=== PATIENT | female | born 1970 | race Caucasian/White ===

== ENCOUNTER 2021-06-10 08:13 | Outpatient (CLI) | payer BC, SELFPAY ==
--- NOTE | 2021-06-10 08:00 | ECG_ITS ---
Measurements Intervals Randall Rate: 61 P: 46 AL: 151 QRS: -31 QRSD: 102 T: 7 QT: 406 QTc: 410 Interpretive Statements SINUS RHYTHM LEFT AXIS DEVIATION POOR R WAVE PROGRESSION, ANTERIOR LEADS BORDERLINE T WAVE ABNORMALITY- INFERIOR LEADS BASELINE ARTIFACT- II, III, AVR, AVL, AVF BORDERLINE ECG Electronically Signed On 06-10-2021 8:36:38 REGISTERED NURSE MATERNAL CHILD by Shiva Thomas D.O.
== END 2021-06-10 08:14 | disposition home or self-care (01) ==
LOC: ANHSURGERY 08:22
PROVIDERS: Visit Provider Obstetrics & Gynecology
DX: Z01.818 Encounter for other preprocedural examination (principal); N92.0 Excessive and frequent menstruation with regular cycle; I10 Essential (primary) hypertension
CPT/HCPCS: 36415; 86850; 86900; 86901; 93005

== ENCOUNTER 2021-06-12 01:54 | Day surgery (SDC) | payer BC, SELFPAY ==
[2021-06-07 11:27] VITALS: BMI 35.2
--- NOTE | 2021-06-07 11:45 | PC.NURSE ---
Report to the Outpatient Waiting Room, entrance under the green pavilion located off [facility], at time 9:30 on date 06/12/21. OR Time: 11:30. - You and your visitor will be asked a series of questions to screen for COVID 19 for your protection. - A mask is required within the hospital. - Only one visitor is allowed at this time. Patient visitors will be guided where to wait when not with patient. Preoperative COVID Testing Requirements: EMAIL POSITIVE TEST RESULT TO: [email or web address] No COVID Test needed if: (proof is required; if not received patient will have Rapid Test prior to entry) - Patient has received COVID Vaccine at least 14 days prior to procedure date or - Patient has positive COVID test result within last 90 days of surgery date. COVID Test needed if above criteria is not met If not COVID vaccinated a COVID test must be conducted within 72 hours of surgery and patient is asked to isolate self from time of testing until procedure. You will go to the [facility] for your COVID testing. The [facility] site is located at the corner of [address] [facility]. You will only be called if COVID results are positive and your surgeon may reschedule your elective surgery date. Patients may have clear liquids (water, carbonated beverages, clear teas, apple juice) until 3 hours prior to surgery with a maximum of 20 ounces. - No food from midnight until time of surgery - Infants may have breast milk until 4 hours before surgery, infant formula 6 hours prior to surgery. - Children will be allowed to drink immediately following surgery. If applicable, please bring a bottle or sippy cup to assist with drinking. Juice, water, soda, and popsicles are readily available. For infants on formula, please bring formula the day of surgery. Pacifiers are allowed. Take the following medications with a SIP of water the morning of surgery: N/A Medications to discontinue per physician: N/A Date to take last dose: N/A Please no make-up, nail kinyarwanda, hairspray, perfume, deodorant, or body powder the day of surgery. No jewelry (including any body piercings) or valuables the day of surgery, leave them at home. Please take a shower or bath the night before, or the morning of, surgery with an antibacterial soap. Wear comfortable, loose fitting clothing. Children are encouraged to wear pajamas. - Jewelry must be removed prior to entering the operating room. Rings and piercings that are not removed may be cut off. - The hospital will not accept responsibility for valuables. - Please leave all valuables, including medications, at home the day of surgery. If you are going home after surgery, a licensed food mobile driver must drive you home. - NO public transportation without another adult. - We recommend that an adult stay with you for 24 hours following discharge. - We also recommend that you do not drive, make important decision, drink alcoholic beverages, or take any drugs that were not prescribed by your health care provider for at least 24 hours after your discharge time. For Pediatric surgeries, we recommend two adults accompany the child home (only one inside the building at this time). Follow any additional instructions given to you from your surgeon. Telephone instructions given to DREAD SMILEY and asked if any additional questions and then verbalized understanding. Patient advised to call surgeon office or pre surgery nurse liaison [phone] if any additional questions.
[2021-06-12] VITALS (11 sets, daily range): BP systolic 104–123; BP diastolic 62–74; PULSE 47–80; RESP 10–18; TEMP 36.6–37.1; O2SAT 92–100
--- NOTE | 2021-06-12 09:51 | WPDANESEPPF ---
Anes - Initial Pre Proc Eval Procedure: Operation Date: 06/12/21 11:30 Proposed Procedures p Total Laparoscopic Hysterectomy with Bilateral Salpingo-oophorectomy - Amy Medrano MD Date/Time: 06/12/21 09:51 Surgeon: Amy Medrano MD Pre Op Diagnosis: Menorrhagia, Myomas Patient Data Age: 50 Gender: F Height: 1.65 m Weight: 96.16 kg Allergies Allergy/AdvReac Type Severity Reaction Status Date / Time No Known Allergies Allergy Mild Unverified 06/07/21 11:25 Home Medications Medication Instructions Recorded Confirmed Type amlodipine 10 mg PO HS 06/07/21 06/07/21 History escitalopram oxalate 10 mg PO HS 06/07/21 06/07/21 History Patient hx anesthesia problems: none Family hx anesthesia problems: none Results Review: All pre-operative results and documents have been reviewed as part of the pre-operative evaluation. [facility] Past Medical History Medical History Anxiety Fibroid Hyperlipidemia Hypertension Social History Social History Smoking status: Never smoker Alcohol intake: current Alcohol use details: 2/MONTH Substance use: never Substance use type: does not use Living arrangements: with family Spiritual care concerns: No Anes - Eval Final PreProcedure Day of Procedure 06/12/21 09:51 Results Review: All pre-operative results and documents have been reviewed as part of the pre-operative evaluation. Informed Consent: The patient's anesthetic plan and its attendant risks and benefits were discussed with the patient/family/POA. Questions were solicited and answers provided to the satisfaction of the patient/family/POA.
--- NOTE | 2021-06-12 10:00 | WPDHPUPDATE1 ---
History and Physical Update Update Date/Time: 06/12/21 10:00 History and Physical has been reviewed, including an updated exam of the patient. There are NO changes in the patient's condition. Risks, benefits, and alternatives have been discussed and questions answered. Patient agrees to proceed with procedure.
[2021-06-12] MEDS: ACETAMINOPHEN 500 MG TABLET 1000 MG PO (10:09)
--- NOTE | 2021-06-12 10:11 | WPDANESEFPP ---
Anes - Eval Final PreProcedure Day of Procedure 06/12/21 10:11 Patient weight: obese Heart: regular rate and rhythm Lungs: clear to auscultation and normal air movement Airway: Mallampati scale class III Neurological: alert and oriented Last oral intake: >/= 8 hours ASA classification: III Emergent: no Anesthetic plan: proceed Anesthesia type and monitoring: general ETT and standard monitoring Results Review: All pre-operative results and documents have been reviewed as part of the pre-operative evaluation. Informed Consent: The patient's anesthetic plan and its attendant risks and benefits were discussed with the patient/family/POA. Questions were solicited and answers provided to the satisfaction of the patient/family/POA.
[2021-06-12] MEDS: LACTATED RINGERS 1,000 ML 30 ML IV CONT ×2 (10:18→12:22)
[2021-06-12] MEDS: KETOROLAC 15 MG/ML VIAL (*BKC) IV PUSH (10:18)
[2021-06-12] MEDS: ceFAZolin 2 GM/D5W 50 ML 2 GM/50 ML BAG IVPB (10:26)
--- NOTE | 2021-06-12 12:10 | W.PM.PROC2 ---
Procedure Note - Detailed Date of Procedure 06/12/21 Pre-op Diagnosis Menorrhagia, Myomas Post-op Diagnosis same Procedure Performed Total laparoscopic hysterectomy and bilateral salpingo-oophorectomy. Surgeon Amy Medrano MD Anesthesia general Indications Severe menometrorrhagia, Findings large myomatous uterus, normal appearing ovaries and normal-appearing tubes. Description of Procedure This patient was taken to the operating room. She was prepped and draped in the dorsal lithotomy position after induction of general anesthesia. The uterine manipulator and Dallin cup were placed. This was done with a speculum and tenaculum. The speculum was placed. The cervix was grasped with a tenaculum. The stay sutures were placed at 3 and 9:00 a.m.. The stay sutures of 0 Vicryl were brought through the appropriately sized Dallin cup. The tip of the YOANA manipulator was placed in the intrauterine cavity. The cup was slid into place around the cervix and into the fornices. It was locked into place. The sutures were then wrapped around the handle and tied under tension. A 5 mm skin incision was made in the left upper quadrant the abdomen. A 5 mm trocar was inserted into the intrauterine cavity under direct visualization of the scope. Pneumoperitoneum was achieved. A left lower quadrant 11 mm incision was made with scalpel. An 11 mm trocar was inserted into the anterior abdominal cavity under direct visualization the scope. A 5 mm infraumbilical incision was made with a scalpel and a 5 mm trocar was inserted the intra-abdominal cavity under direct visualization of the scope. Bilateral ureteral lysis was performed. This was done from the pelvic brim down to the uterine artery. This was done with careful dissection using sharp and blunt dissection. The infundibulopelvic ligaments were isolated after identification of the ureters bilaterally. These infundibulopelvic ligaments were cauterized and transected with LigaSure cautery. The para ovarian tissue was cauterized and transected with LigaSure cautery bilaterally. Moving around the ovary into the broad ligament the tissue was cauterized transected with LigaSure cautery. The round ligaments were cauterized transected with LigaSure cautery this was all done in a bilateral fashion. In a stepwise fashion along the lateral aspects of the uterus the round ligament and broad ligaments were cauterized transected down to the level of the uterine arteries. A bladder flap was created in the bladder was moved distally to the end of the cervix and over the Dallin cup. The bilateral uterine arteries were cauterized and transected. Colpotomy was then performed. In a circumferential fashion the vagina was transected using unipolar cautery. The incision was made down on the Dallin cup. The uterus, cervix, fallopian tubes and ovaries were taken out through the vagina. A pneumo occluder was placed in the vagina. The vaginal cuff was closed with a 0 V lock suture in a running fashion. The pelvis was irrigated with copious amounts antibiotic irrigation. The ureters were again examined and found to be intact and flowing freely under the uterine arteries into the bladder. The bladder was intact. It was examined directly. The vagina was irrigated with Betadine solution after removal of the Pneumo occluder. The patient was taken to recovery room. She was stable condition. Sponge lap and needle counts were correct x2. Estimated Blood Loss 150 Drains Yes Packing No Pathology yes Complications No immediate complications Condition stable Disposition floor
[2021-06-12] MEDS: fentaNYL CITRATE INJ (*CRX) 100 MCG/2 ML VIAL 25 MCG IV PUSH ×6 (12:49→14:01)
[2021-06-12] MEDS: ONDANSETRON INJ 4 MG/2 ML VIAL IV PUSH ×2 (13:03→19:09)
[2021-06-12] MEDS: DEXTROSE 5%/0.45% SOD CHL 1,000 ML 125 ML IV CONT ×2 (14:51→22:55)
[2021-06-12] MEDS: KETOROLAC 30 MG/ML VIAL (*BKC) IV PUSH (16:07)
[2021-06-12] MEDS: HYDROcodone/acetaminophen (*CRX) 5-325 MG TABLET 1 TAB PO (16:08)
[2021-06-12] MEDS: HYDROcodone/acetaminophen (*CRX) 10-325 MG TABLET 1 TAB PO (19:09)
[2021-06-13] VITALS: BP 112/62; PULSE 74; RESP 16; TEMP 36.7; O2SAT 94
[2021-06-13 04:00] VITALS: BP 100/59; PULSE 71; RESP 16; TEMP 36.6; O2SAT 94
[2021-06-13 08:30] VITALS: BP 119/65; PULSE 70; RESP 16; TEMP 36.7; O2SAT 97
[2021-06-13] MEDS: IBUPROFEN 600 MG TABLET PO (08:40)
--- NOTE | 2021-06-13 08:58 | PM.GYNPNOP ---
PALEOLOGIST - A/P Postoperative Procedures: Procedures Operation Date: 06/12/21 11:30 Actual Procedure Side Surgeon p Total Laparoscopic Hysterectomy with Bilateral Salpingo-oophorectomy Bilateral Amy Medrano MD Postoperative day: 1 Postoperative status: doing well Postoperative plan: see orders Time Spent With Patient Time: Total time spent is greater than 50% in coordination of care (as documented) at patient's floor/unit and/or counseling patient: Time with patient: less than 15 minutes PALEOLOGIST- PN:Subj Post-Op Subjective Date/time seen: 06/13/21 08:58 Subjective: patient reports feeling better, patient has no complaints and pain is well controlled Exam Const: General: healthy appearing, comfortable and no acute distress Resp: Auscultation: clear to auscultation bilaterally, no rales, no rhonchi and no wheezes Cardio: Rate: regular rate Heart sounds: no click, no murmurs and no rubs GI: Inspection: non-distended Auscultation: normal bowel sounds Extrem: General: normal to inspection, no pedal edema and no calf tenderness PALEOLOGIST - PN: Obj Data Vital Signs Vital Signs: Vital Signs - 24 hr 06/12/21 10:00 06/12/21 12:21 06/12/21 12:36 Temperature 98.8 F 98.0 F Pulse Rate 67 63 60 Respiratory Rate 16 15 10 L Blood Pressure 123/73 113/74 114/72 Pulse Oximetry 98 99 100 06/12/21 12:51 06/12/21 13:06 06/12/21 13:21 Temperature Pulse Rate 47 L 50 L 60 Respiratory Rate 10 L 10 L 12 Blood Pressure 115/68 114/71 111/68 Pulse Oximetry 100 95 95 06/12/21 13:35 06/12/21 13:50 06/12/21 14:05 Temperature Pulse Rate 60 67 63 Respiratory Rate 16 12 12 Blood Pressure 117/68 104/63 112/66 Pulse Oximetry 93 97 92 06/12/21 14:20 06/12/21 20:30 06/13/21 00:00 Temperature 98 F 98.6 F 98.1 F Pulse Rate 54 L 80 74 Respiratory Rate 18 18 16 Blood Pressure 114/70 117/62 112/62 Pulse Oximetry 97 94 94 06/13/21 04:00 Temperature 97.9 F Pulse Rate 71 Respiratory Rate 16 Blood Pressure 100/59 L Pulse Oximetry 94 Intake/Output Intake/Output: Intake & Output 06/10/21 06/11/21 06/12/21 06/13/21 23:59 23:59 23:59 23:59 Intake Total 1990 1300 Output Total 690 2200 Balance 1300 -900 Meds/Results Medications: Active Medications Generic Name Dose Route Start Last Admin Trade Name Freq PRN Reason Stop Dose Admin Hydrocodone Bitart/Acetaminophen 1 tab 06/12/21 12:11 06/12/21 16:08 Hydrocodone/Acetaminophen (*Crx) 5-325 Mg Tablet PO 1 tab Q3H PRN Administration Pain Rated 5 or Less Hydrocodone Bitart/Acetaminophen 1 tab 06/12/21 12:11 06/12/21 19:09 Hydrocodone/Acetaminophen (*Crx) 10-325 Mg Tablet PO 1 tab Q3H PRN Administration Pain Rated 6 or Greater Dextrose/Sodium Chloride 1,000 mls @ 125 mls/hr 06/12/21 12:15 06/13/21 05:34 Dextrose 5% Sodium Chloride 0.45% IV CONT Not Given .Q8H WOODY Ibuprofen 600 mg 06/12/21 12:11 06/13/21 08:40 Ibuprofen 600 Mg Tablet PO 600 mg Q6H PRN Administration Cramping Ketorolac Tromethamine 30 mg 06/12/21 12:11 06/12/21 16:07 Ketorolac 30 Mg/Ml Vial (*Bkc) IV PUSH 06/17/21 12:10 30 mg Q6H PRN Administration Pain Rated 4-6 Naloxone HCl 0.1 mg 06/12/21 12:11 Naloxone Hcl 0.4 Mg/Ml Vial IV PUSH Q2M PRN Respiratory rate less than 10 Ondansetron HCl 4 mg 06/12/21 12:11 06/12/21 19:09 Ondansetron Inj 4 Mg/2 Ml Vial IV PUSH 4 mg Q6H PRN Administration Nausea And Vomiting
== END 2021-06-13 10:58 | disposition home or self-care (01) ==
LOC: ANHSURGERY 09:07 → ANHOB2 14:13
PROVIDERS: Visit Provider Obstetrics & Gynecology
PROC: 0UT9FZZ Resection of Uterus, Via Natural or Artificial Opening With Percutaneous Endoscopic Assistance (ICD-10-PCS; CPT 58573; principal; 2021-06-12 11:30)
DX: N92.1 Excessive and frequent menstruation with irregular cycle (principal); D25.1 Intramural leiomyoma of uterus; D25.2 Subserosal leiomyoma of uterus; N80.0 Endometriosis of uterus; N73.6 Female pelvic peritoneal adhesions (postinfective); I10 Essential (primary) hypertension; E78.5 Hyperlipidemia, unspecified; F41.9 Anxiety disorder, unspecified; E66.9 Obesity, unspecified; Z68.34 Body mass index [BMI] 34.0-34.9, adult
CPT/HCPCS: 58573; 88307; 99199; A9270; J0690; J1100; J1885; J2250; J2405; J2704; J2710; J3010; J7030; J7120